=== PATIENT | male | born 1995 | race Caucasian/White ===

== ENCOUNTER 2016-12-23 17:28 | Emergency (ER) | payer SELFPAY ==
[~2016-12-23] VITALS: Ht 180.3 cm; Wt 68.0 kg
[2016-12-23 17:35] VITALS: BP 100/63; PULSE 73; RESP 16; TEMP 97.9; O2SAT 100
[2016-12-23 17:43] LABS: BLOOD, URINE NEG (NEG); GLUCOSE,URINE NEG (NEG); KETONE, URINE NEG (NEG); NITRITE,URINE NEG (NEG); PH, URINE 7.5 (5.0-8.5)
[2016-12-23 17:50] LABS: COMMENT (UR) CULT NOT INDICATED; CULTURE IF INDICATED CULT NOT INDICATED; SQUAMOUS EPITHELIAL CELL URINE 0-5 /hpf (0-5); URINE COLOR YELLOW (YELLW/STRAW)
--- NOTE | 2016-12-23 18:06 | PD ---
HPI Chief Complaint: Pain: Acute or Chronic Time Seen by Provider: 17:55 Travel History International Travel<30 days: No Contact w/Intl Traveler<30days: No Traveled to known affect area: No History of Present Illness HPI 21yo M presents to the ED with multiple complaints. Pt was caught shop lifting and states he was wearing a back pack and someone lifted him up and now he has left sided sharp pain in his left chest. Pt denies any sob, fever, n/v, urinary complaints, fall, focal weakness or numbness. Pt also states he has kidney problems for 1.5 years but never followed up. Pt states he has abdominal pain for 3 days as well. PFSH Past Medical History Diminished Hearing: No Genitourinary: Yes (KIDNEY PAIN FROM IV DRUG USE PER PT) Immunizations Current: No Tetanus Vaccination: Unknown Influenza Vaccination: No Past Surgical History Surgical History: No Previous Surgery Social History Alcohol Use: No Tobacco Use: Yes (1PK) Substance Use: Yes (HEROIN PAST) Allergies-Medications (Allergen,Severity, Reaction): Coded Allergies: No Known Allergies (Unverified , 12/23/16) Reported Meds & Prescriptions Reported Meds & Active Scripts Active No Active Prescriptions or Reported Medications Review of Systems Except as stated in HPI: all other systems reviewed are Neg Physical Exam Narrative GENERAL: 21yo M in mild distress. SKIN: Focused skin assessment warm/dry. HEAD: Atraumatic. Normocephalic. EYES: Pupils equal and round. No scleral icterus. No injection or drainage. ENT: No nasal bleeding or discharge. Mucous membranes pink and moist. NECK: Trachea midline. No JVD. CARDIOVASCULAR: Regular rate and rhythm. No murmur appreciated. RESPIRATORY: No accessory muscle use. Clear to auscultation. Breath sounds equal bilaterally. GASTROINTESTINAL: Abdomen soft, mild lower abdominal ttp. No rebound tenderness or guarding. BACK: No midline ttp. +Left posterior lower rib ttp. No crepitus or ecchymoses. MUSCULOSKELETAL: No obvious deformities. No clubbing. No cyanosis. No edema. NEUROLOGICAL: Awake and alert. No obvious cranial nerve deficits. Motor grossly within normal limits. Normal speech. PSYCHIATRIC: Appropriate mood and affect; insight and judgment normal. Data Data Last Documented VS Vital Signs Date Time Temp Pulse Resp B/P Pulse Ox O2 Delivery O2 Flow Rate FiO2 8/1/17 17:41 73 12/23/16 17:35 97.9 16 100/63 100 Orders Urinalysis - C+S If Indicated (12/23/16 17:34) Electrocardiogram (12/23/16 ) Acetaminophen (Tylenol) (12/23/16 18:30) Labs Laboratory Tests Test 12/23/16 17:30 Urine Color YELLOW Urine Turbidity CLEAR Urine pH 7.5 Urine Specific [place] 1.015 Urine Protein NEG mg/dL Urine Glucose (UA) NEG mg/dL Urine Ketones NEG mg/dL Urine Occult Blood NEG Urine Nitrite NEG Urine Bilirubin NEG Urine Leukocyte Esterase NEG Urine Squamous Epithelial 0-5 /hpf Cells Microscopic Urinalysis Comment CULT NOT INDICATED MDM Medical Decision Making Medical Screen Exam Complete: Yes Emergency Medical Condition: Yes Interpretation(s) EKG: NSR 69bpm. Normal axis. No ST segment elevation or depression. Differential Diagnosis Musculoskeletal pain vs. chronic kidney injury vs. rib contusion vs. fracture Narrative Course 21yo M presents to the ED with multiple complaints. Pt is well appearing and initially came in because he was caught shop lifting and has left sided chest pain after they lifted him up by his backpack. They did not drop him and he did not fall. Left chest is tender to palpation but no ecchymoses. Pt states he has kidney problem and has not had a work up because he did not follow up. UA was sent and showed no blood or leukocyte. I did order xray ribs with labs to check basic renal function. Pt has tenderness to abdomen as well but no nausea or vomiting. However, I was informed by nurse that when they went to place the IV, he did not like where they are putting it so he is going to go to another hospital. He understands that the work up is not complete. AMA: The risks of leaving against medical advice without further evaluation treatment were discussed with the patient. These risks include cardiac dysfunction, cardiac dysrhythmia, possible heart attack, possible stroke or . The patient indicated understanding of these risks and appeared to have the capacity to make this decision. Diagnosis Primary Impression: Patient left without being seen Patient Instructions: General Instructions Departure Forms: Tests/Procedures Additional Instructions: Please follow up with your PMD or return to the ED if you change your mind. Med/Other Pt SpecificInfo: No Change to Meds Scripts No Active Prescriptions or Reported Meds Disposition: 07 AGAINST MEDICAL ADVICE Condition: Stable CallawaySrideviJosefina DO Dec 23, 2016 18:06
[2016-12-23] MEDS ORDERED: ACETAMINOPHEN 325 MG TAB PO ONE (18:30)
--- NOTE | 2016-12-24 09:29 | EKG ---
Date Performed: 12/23/2016 Time Performed: 18:14:53 PTAGE: 21 years EKG: Sinus rhythm NORMAL ECG NO PREVIOUS TRACING DOCTOR: Kalin Gonzalez Interpretating Date/Time 12/24/2016 09:28:36
== END 2016-12-23 18:23 | disposition left against medical advice (07) ==
LOC: PHED 17:28
DX: R07.89 Other chest pain (principal); F17.210 Nicotine dependence, cigarettes, uncomplicated; Z53.21 Procedure and treatment not carried out due to patient leaving prior to being seen by health care provider
CPT/HCPCS: 81001; 93005; 99284